=== PATIENT | male | born 1945 | race Caucasian/White ===

== ENCOUNTER 2022-07-23 09:21 | Outpatient (OUT) | payer MEDICARE, OTHER, SELFPAY ==
[2022-07-23 11:03] LABS: Alanine Aminotransferase 50 U/L (16-63); Aspartate Amino Transferase 22 U/L (15-37); Chol HDL Ratio 2.8; Cholesterol 150 mg/dL (<=200); HDL Cholesterol 54 mg/dL (40-60); LDL Cholesterol Calculated 81.8 mg/dL; Triglycerides 71 mg/dL (<=150); VLDL CHOLESTEROL 14.2 mg/dL
== END 2022-07-23 09:22 ==
LOC: LAB 09:27
PROVIDERS: PCP Family Medicine; Visit Provider Internal Medicine Cardiovascular Disease
DX: I25.10 Atherosclerotic heart disease of native coronary artery without angina pectoris (principal); E78.2 Mixed hyperlipidemia
CPT/HCPCS: 36415; 80061; 84450; 84460

== ENCOUNTER 2023-07-19 10:54 | Outpatient (OUT) | payer MEDICARE, OTHER, SELFPAY ==
[2023-07-19 11:47] LABS: Alanine Aminotransferase 62 U/L (16-63); Aspartate Amino Transferase 31 U/L (15-37); Chol HDL Ratio 2.7; Cholesterol 153 mg/dL (<=200); HDL Cholesterol 57 mg/dL (40-60); LDL Cholesterol Calculated 78.6 mg/dL; Triglycerides 87 mg/dL (<=150); VLDL CHOLESTEROL 17.4 mg/dL
== END 2023-07-19 10:55 | disposition home or self-care (01) ==
PROVIDERS: PCP Family Medicine; Visit Provider Internal Medicine Cardiovascular Disease
DX: E78.2 Mixed hyperlipidemia (principal)
CPT/HCPCS: 36415; 80061; 84450; 84460